=== PATIENT | male | born 1970 | race Two or more races ===

== ENCOUNTER 2019-02-23 20:50 | Emergency (ER) | payer MEDICAID, OTHER ==
[~2019-02-23] VITALS: Ht 170.2 cm; Wt 97.5 kg
--- NOTE | 2019-02-23 21:22 | NUR ---
Pt c/o left knee, left ankle, left shoulder and left elbow pain s/p ground level fall. Pt states he slipped on water. Pt denies hitting head, denies LOC. Pt is A/O x 4 and ambulated in ER with stable gait. Safe environment implemented
--- NOTE | 2019-02-23 22:22 | NUR ---
Patient discharged to home in stable conditon. Written and verbal after care instructions given. Patient verbalizes understanding of instructions.
[2019-02-23 22:23] VITALS: BP 117/64
== END 2019-02-23 22:25 | disposition home or self-care (01) ==
LOC: ER 20:54
DX: T14.8XXA Other injury of unspecified body region, initial encounter (principal); M25.532 Pain in left wrist; M25.512 Pain in left shoulder; M25.562 Pain in left knee; M25.572 Pain in left ankle and joints of left foot; W01.0XXA Fall on same level from slipping, tripping and stumbling without subsequent striking against object, initial encounter; Y93.89 Activity, other specified; Y92.89 Other specified places as the place of occurrence of the external cause; Y99.8 Other external cause status
CPT/HCPCS: 73030; 73110; 73590; 73610; A4663

== ENCOUNTER 2019-06-06 13:44 | Emergency (ER) | payer BC, OTHER ==
[~2019-06-06] VITALS: Ht 172.7 cm; Wt 97.5 kg
--- NOTE | 2019-06-06 13:58 | NUR ---
Pt. admitted to ER with laceration to the R hand , seen and examined by Dr. Leyva.
[2019-06-06] MEDS ORDERED: LIDOCAINE HCL 1% 20 ML VIAL TP ONE (14:00)
[2019-06-06] MEDS ORDERED: IBUPROFEN 600 MG TABLET PO ONE (14:00)
[2019-06-06] MEDS ORDERED: TDAP DIPH,PERTUSS,TET VAC/PF 0.5 ML DISP.SYRIN IM ONE ×2 (14:00→14:07)
[2019-06-06] MEDS ORDERED: LIDOCAINE HCL 1% 20 ML VIAL ONE (14:06)
[2019-06-06] MEDS ORDERED: IBUPROFEN 400 MG TABLET ONE (14:07)
[2019-06-06] MEDS ORDERED: NEOMY/BACITRA/POLYMYXIN B OINT UD PACKET TP ONE ×2 (14:47→15:00)
--- NOTE | 2019-06-06 14:58 | NUR ---
Patient discharged to home in stable conditon. Written and verbal after care instructions given. Patient verbalizes understanding of instructions.pt walks in steady gait.
== END 2019-06-06 14:59 | disposition home or self-care (01) ==
LOC: ER 13:44
DX: S61.411A Laceration without foreign body of right hand, initial encounter (principal); W23.0XXA Caught, crushed, jammed, or pinched between moving objects, initial encounter; Y93.89 Activity, other specified; Y92.89 Other specified places as the place of occurrence of the external cause; Y99.8 Other external cause status
CPT/HCPCS: 12002; 73130; 90471; 90715; 99283; J3490; A4663

== ENCOUNTER 2022-12-01 16:39 | Emergency (ER) | payer BC, OTHER ==
[~2022-12-01] VITALS: Ht 172.7 cm; Wt 97.5 kg
--- NOTE | 2022-12-01 17:00 | NUR ---
Pt triaged and ambulated back to ER waiting room, no ER beds available at this time.
[2022-12-01 17:20] LABS: *BLOOD, URINE NEGATIVE (NEGATIVE); *CLARITY,URINE CLEAR (CLEAR); *COLOR,URINE Orange (YELLOW); *KETONES,URINE 1+ (NEGATIVE); LEUKOCYTE ESTERASE ,URINE NEGATIVE (NEGATIVE); NITRITE, URINE NEGATIVE (NEGATIVE); PH,URINE 5.5 (5.0-8.0); UGLUCOSE NEGATIVE (NEGATIVE)
[2022-12-01 17:27] LABS: *BILIRUBIN,URIN 3+ (NEGATIVE); RBC,URINE 0-3 /HPF (0-3)
[2022-12-01 17:28] LABS: WBC,URINE 0-3 /HPF (0-3)
--- NOTE | 2022-12-01 20:00 | NUR ---
H/L STARTED IN R AC , LABS DRAWN AND SENT.
--- NOTE | 2022-12-01 20:13 | NUR ---
PT AMB TO [facility] WITH STEADY GAIT.
[2022-12-01 20:25] LABS: HEMATOCRIT 43.1 % (36.7-47.1); MEAN CORPUSCULAR HEMOGLOBIN 30.5 uug (23.8-33.4); MEAN CORPUSCULAR VOLUME 89.7 fL (73.0-96.2); PLATELET COUNT (AUTO) 167 K/uL (152-348)
[2022-12-01 20:58] LABS: ALANINE AMINOTRANSFERASE 813 U/L (16-63); ALKALINE PHOSPHATASE 219 U/L (50-136); ASPARTATE AMINOTRANSFERASE 240 U/L (15-37); BILIRUBIN,DIRECT 6.3 mg/dL (0.0-0.2); BILIRUBIN,TOTAL 8.8 mg/dL (0.2-1.0); CARBON DIOXIDE 27 mmol/L (21-32); CHLORIDE 102 mmol/L (98-107); CREATININE 1.5 mg/dL (0.6-1.3); LIPASE 273 U/L (73-393); POTASSIUM 3.4 mmol/L (3.5-5.1); TOTAL PROTEIN, SERUM 7.4 g/dL (6.4-8.2); UREA NITROGEN, BLOOD 17 mg/dL (7-18)
[2022-12-01] MEDS ORDERED: PIPERACILLIN SODIUM/TAZOBACTAM 3.375 G in IV DEXTROSE 5% 50 ML IV ONE (21:15)
[2022-12-01] MEDS ORDERED: IV NS 1000 ML 1,000 ML IV ONE (21:15)
[2022-12-01] MEDS ORDERED: PIPERACILLIN/TAZOBACTAM/D5W 50 ML IV ONE (21:20)
[2022-12-01] MEDS ORDERED: MORPHINE SULFATE 4 MG/1 ML DISP.SYRIN IV ONE (21:30)
[2022-12-01] MEDS ORDERED: MORPHINE SULFATE 4 MG/1 ML DISP.SYRIN ONE ×2 (21:32→22:40)
[2022-12-01] MEDS ORDERED: KETOROLAC TROMETHAMINE 30 MG INJ IVP ONE (22:15)
[2022-12-01] MEDS ORDERED: KETOROLAC TROMETHAMINE 30 MG INJ ONE (22:39)
[2022-12-01 23:35] VITALS: O2SAT 98
--- NOTE | 2022-12-01 23:50 | NUR ---
Note deliayissel in EDM - 12/01/22 at 2353 by [email or web address] Rosario bilingual patient support caseworker from [employer] called back with transfer info. Patient will be going to [facility] room 421. Accepting MD is Dr Wilolughby. Call for report is [phone]
--- NOTE | 2022-12-01 23:53 | NUR ---
Rosario dependency case manager from [facility] called back with transfer info. Patient will be going to [facility] room 421. Accepting MD is Dr Willoughby. Call for report is .
--- NOTE | 2022-12-01 23:58 | NUR ---
Called [facility] ambulance ETA is 1.5hr from now.
--- NOTE | 2022-12-02 01:00 | NUR ---
REPORT GIVEN TO [facility] FOR [facility]. PT STABLE , READY FOR TRANSPORT.
--- NOTE | 2022-12-02 01:15 | NUR ---
Patient Tranfers to outside Facility Physician:RUSTY Location:[facility]
--- NOTE | 2022-12-02 01:15 | NUR ---
PT TRANSPORTED BY AMBULANCE TO [facility]
--- NOTE | 2022-12-02 01:30 | NUR ---
REPORT GIVEN TO KENYA JACKSON AT [facility] PT GOING TO RM 421.
== END 2022-12-02 01:15 | disposition short-term general hospital (02) ==
LOC: ER 16:47
DX: K80.20 Calculus of gallbladder without cholecystitis without obstruction (principal); K80.50 Calculus of bile duct without cholangitis or cholecystitis without obstruction
CPT/HCPCS: 99285; 96365; 76705; 96375; 96366; 80076; 80048; 81001; 83690; 85025; 85730; 87040 ×2; 84484; 93005; 83605; J1885; J2543; J2270 ×2; J7040; A4663